=== PATIENT | male | born 1960 | race Caucasian/White ===

== ENCOUNTER → 2016-06-29 | Outpatient (CLI) | payer OTHER ==
[~2016-06-29] MED LIST: ASPIRIN 81MG TA81 MG PO; FLEXERIL10 MG PO; NAPROSYN 500MG500 MG PO; PLAVIX 75MG TAB75 MG PO; TRAMADOL50 MG PO
[2016-06-29 10:50] LABS: LYMPH # 1.7 K/mm3 (0.7-4.5)
[2016-06-29 10:54] LABS: HEMOGLOBIN 9.1 g/dL (14.1-18.0)
[2016-06-29 12:20] LABS: BUN 9 mg/dL (7-18)
[2016-06-29 12:59] LABS: GFR (ESTIMATED) 138 ML/MIN (>60)
== END ==
LOC: LAB 10:22
PROVIDERS: Internal Medicine Infectious Disease
DX: A49.9 Bacterial infection, unspecified (principal); I73.9 Peripheral vascular disease, unspecified; E78.00 Pure hypercholesterolemia, unspecified; M54.16 Radiculopathy, lumbar region; M51.36 Other intervertebral disc degeneration, lumbar region; M15.0 Primary generalized (osteo)arthritis